=== PATIENT | female | born 1995 | race Caucasian/White ===

== ENCOUNTER 2022-03-28 17:55 | Emergency (ER) | payer MEDICAID, OTHER ==
[~2022-03-28] VITALS: Ht 162.6 cm; Wt 73.0 kg
[2022-03-28 18:03] VITALS: BP 144/88
[2022-03-28] MEDS ORDERED: KETOROLAC 60MG/2ML VIAL IM ONE (19:15)
[2022-03-28] MEDS ORDERED: ACETAMINOPHEN 325MG TABLET PO ONE (19:15)
[2022-03-28] MEDS ORDERED: NAPR-681 MT (20:03)
== END 2022-03-28 20:25 | disposition home or self-care (01) ==
LOC: ER 17:55
DX: S20.212A Contusion of left front wall of thorax, initial encounter (principal); S80.01XA Contusion of right knee, initial encounter; V49.49XA Driver injured in collision with other motor vehicles in traffic accident, initial encounter; Y93.89 Activity, other specified; Y92.89 Other specified places as the place of occurrence of the external cause; Y99.8 Other external cause status; G43.909 Migraine, unspecified, not intractable, without status migrainosus
CPT/HCPCS: 71045; 73030; 73560; 81025; 99284